=== PATIENT | female | born 1975 | race Caucasian/White ===

== ENCOUNTER 2019-04-03 11:18 | Emergency (ER) | payer BC, OTHER ==
--- NOTE | 2019-04-03 11:57 | UC ---
Ear Complaint HPI - HPI Summary HPI Summary: 44 yo female presents with LEFT ear pain and sore throat. She tells me that about 2 days ago she began to have mild left ear pain that has significantly worsened since that time. She has a muffled sound in her left ear with pain in the ear with swallowing. She has not taken anything OTC for her symptoms. Denies fever, chills, sinus symptoms, cough. - History of Current Complaint Chief Complaint: UCEar Stated Complaint: EAR PAIN Time Seen by Provider: 04/03/19 11:57 Hx Obtained From: Patient Onset/Duration: Gradual Onset Severity Initially: Moderate Severity Currently: Moderate Pain Intensity: 7 Pain Scale Used: 0-10 Numeric - Allergies/Home Medications Allergies/Adverse Reactions: Allergies Allergy/AdvReac Type Severity Reaction Status Date / Time No Known Allergies Allergy Verified 04/03/19 11:43 Home Medications: Home Medications Loratadine 1 tab PO DAILY 04/03/19 [History Confirmed 04/03/19] amLODIPine TAB* [Norvasc 5 mg TAB*] 1 tab PO DAILY 04/03/19 [History Confirmed 04/03/19] PMH/Surg Hx/FS Hx/Imm Hx Cardiovascular History: Hypertension - Surgical History Surgical History: None - Family History Known Family History: Positive: Non-Contributory - Social History Lives: With Family Alcohol Use: None Substance Use Type: None Smoking Status (MU): Heavy Every Day Tobacco Smoker Review of Systems All Other Systems Reviewed And Are Negative: No Constitutional: Positive: Negative Skin: Positive: Negative Eyes: Positive: Negative ENT: Positive: Sore Throat, Ear Ache Respiratory: Positive: Negative Cardiovascular: Positive: Negative Gastrointestinal: Positive: Negative Neurological: Positive: Negative Psychological: Positive: Negative Physical Exam - Summary Physical Exam Summary: GENERAL: NAD. WDWN. No pain distress. SKIN: No rashes, sores, lesions, or open wounds. HEENT: Head: AT/NC Eyes: EOM intact. Conjunctiva clear without inflammation or discharge. Ears: Hearing grossly normal. LEFT TM with mild erythema and bulging. No canal edema or drainage. Nose: Nasal mucosa pink and moist. NTTP maxillary and frontal sinus. Throat: Posterior oropharynx without exudates, erythema, or tonsillar enlargement. Uvula midline. NECK: Supple. Nontender. No lymphadenopathy. CHEST: CTAB. No r/r/w. No accessory muscle use. Breathing comfortably and in no distress. CV: RRR. Without m/r/g. Pulses intact. NEURO: Alert. PSYCH: Age appropriate behavior. Triage Information Reviewed: Yes Vital Signs: Initial Vital Signs Temp 98 F 04/03/19 11:40 Pulse 79 04/03/19 11:40 Resp 18 04/03/19 11:40 BP 149/109 04/03/19 11:40 Pulse Ox 100 04/03/19 11:40 Vital Signs Reviewed: Yes Ear Complaint Course/Dx - Course Course Of Treatment: Otitis media - Differential Dx/Diagnosis Provider Diagnosis: Otitis media Discharge ED - Sign-Out/Discharge Documenting (check all that apply): Patient Departure All imaging exams completed and their final reports reviewed: No Studies - Discharge Plan Condition: Stable Disposition: HOME Prescriptions: Amoxicillin PO (*) [Amoxicillin 875 MG (*)] 875 mg PO BID #14 tab Loratadine [Claritin 10 MG CAP] 10 mg PO DAILY #30 cap Patient Education Materials: Ear Infection (ED) Referrals: No Primary Care Phys,NOPCP [Primary Care Provider] - Additional Instructions: If you develop a fever, shortness of breath, chest pain, new or worsening symptoms - please call your PCP or go to the ED immediately. Your blood pressure was high at todays visit. Please see your primary provider within 4 weeks for recheck and re-evaluation. - Billing Disposition and Condition Condition: STABLE Disposition: Home
[2019-04-03 12:07] VITALS: BP 140/90
== END 2019-04-03 12:23 | disposition home or self-care (01) ==
LOC: UCEAST 11:18
DX: H66.92 Otitis media, unspecified, left ear (principal); I10 Essential (primary) hypertension; Z79.899 Other long term (current) drug therapy; F17.200 Nicotine dependence, unspecified, uncomplicated
CPT/HCPCS: 99202; G0463

== ENCOUNTER 2019-04-04 15:56 | Inpatient (IN) | payer OTHER ==
[2019-04-04] MEDS ORDERED: Ketorolac INJ* 30 MG/ML 1 ML VIAL IM ONE (16:37)
--- NOTE | 2019-04-04 16:39 | ED ---
Throat Pain/Nasal Congestion - HPI Summary HPI Summary: This patient is a 44 year old F presenting to ED with a chief complaint of left ear pain since 04/02/19. Patient recently got a flu shot on 04/02/19 and then developed the ear pain later. Patient states she was seen at on 04/03/19 and diagnosed with an ear infection. She was given amoxicillin and Claritin. Patient did not sleep well last night due to the ear pain. Two hours ago, she developed a sore throat, diaphoresis, body aches, nausea, bilateral upper extremity burning/tingling, and chest burning/tingling. Patient denies SOB, rhinitis, cough, vomiting. The patient rates the pain 9/10 in severity. Symptoms aggravated by nothing. Symptoms alleviated by nothing. - History of Current Complaint Chief Complaint: EDFluSymptoms Time Seen by Provider: 04/04/19 16:22 Hx Obtained From: Patient Onset/Duration: Sudden Onset, Lasting Days - Since 04/02/19, Still Present, Worse Since - Developed new symptoms Severity: Worse Since: - Two hours ago, developed new symptoms Associated Signs And Symptoms: Positive: Negative - SOB, cough, rhinitis Cough: None - Allergies/Home Medications Allergies/Adverse Reactions: Allergies Allergy/AdvReac Type Severity Reaction Status Date / Time No Known Allergies Allergy Verified 04/04/19 16:02 PMH/Surg Hx/FS Hx/Imm Hx Endocrine/Hematology History: Denies: Hx Diabetes Cardiovascular History: Reports: Hx Hypertension Respiratory History: Denies: Hx Asthma, Hx Chronic Obstructive Pulmonary Disease (COPD) - Surgical History Surgery Procedure, Year, and Place: - Immunization History Date of Influenza Vaccine: 04/02/19 Infectious Disease History: No Infectious Disease History: Denies: Traveled Outside the [place] in Last 30 Days - Family History Known Family History: Positive: Cardiac Disease, Hypertension, Diabetes - Social History Alcohol Use: None Hx Substance Use: No Substance Use Type: Reports: None Hx Tobacco Use: Yes Smoking Status (MU): Heavy Every Day Tobacco Smoker Review of Systems Positive: Skin Diaphoresis ENT: Negative - Rhinitis Positive: Sore Throat, Ear Ache - Left Positive: Chest Pain - Burning/tingling Negative: Shortness Of Breath, Cough Positive: Nausea. Negative: Vomiting Musculoskeletal: Other - Body aches, bilateral upper extremity burning/tingling All Other Systems Reviewed And Are Negative: Yes Physical Exam - Summary Physical Exam Summary: Appearance: The patient is well-nourished in no acute distress and in no acute pain. Skin: The skin is warm and dry, and skin color reflects adequate perfusion. HEENT: The head is normocephalic and atraumatic. The pupils are equal and reactive. The conjunctivae are clear and without drainage. Nares are patent and without drainage. Mouth reveals moist mucous membranes, and the throat is without erythema and exudate. The external ears are intact. The ear canals are patent and without drainage. The tympanic membranes are intact. Neck: The neck is supple with full range of motion and non-tender. There are no carotid bruits. There is no neck vein distension. Respiratory: Chest is non-tender. Lungs are clear to auscultation and breath sounds are symmetrical and equal. Cardiovascular: Heart is regular rate and rhythm. There is no murmur or rub auscultated. There is no peripheral edema and pulses are symmetrical and equal. Abdomen: The abdomen is soft and non-tender. There are normal bowel sounds heard in all four quadrants and there is no organomegaly palpated. Musculoskeletal: There is no back tenderness noted. Extremities are non-tender with full range of motion. There is good capillary refill. There is no peripheral edema or calf tenderness elicited. Neurological: Patient is alert and oriented to person, place and time. The patient has symmetrical motor strength in all four extremities. Cranial nerves are grossly intact. Deep tendon reflexes are symmetrical and equal in all four extremities. Psychiatric: The patient has an appropriate affect and does not exhibit any anxiety or depression. Triage Information Reviewed: Yes Vital Signs On Initial Exam: Initial Vitals Temp Pulse Resp BP Pulse Ox 96.7 F 67 16 167/111 100 04/04/19 15:57 04/04/19 15:57 04/04/19 15:57 04/04/19 15:57 04/04/19 15:57 Vital Signs Reviewed: Yes Diagnostics - Vital Signs Vital Signs Temp Pulse Resp BP Pulse Ox 04/04/19 16:15 97.4 F 04/04/19 16:12 64 99 04/04/19 16:07 63 180/124 98 04/04/19 15:57 96.7 F 67 16 167/111 100 - Laboratory Result Diagrams: 04/04/19 16:46 04/04/19 16:46 Lab Statement: Any lab studies that have been ordered have been reviewed, and results considered in the medical decision making process. - Radiology CXR Radiology Interpretation Completed By: ED Physician Summary of Radiographic Findings: No acute processes, pending official radiology report. - EKG 1843 Cardiac Rate: NL - 67 BPM EKG Rhythm: Sinus Rhythm Summary of EKG Findings: NSR at 67 BPM, acute inferior STEMI. Re-Evaluation - Re-Evaluation First Eval Re-Evaluation Time: 18:39 Comment: Discussed results with patient. Patient reports she is now having chest pain and worse pain in the left arm than the right arm so I will check an EKG and troponin. Patient only now reports that her family has cardiac disease. EENT Course/Dx - Course Course Of Treatment: Ms. Hammer presented complaining that she went to [facility] yesterday for left ear pain. She was given a prescription for amoxicillin, filled and began taking it. She didn't sleep well last night because of the pain in her ear. About 2 hours prior to presentation she began to complain of burning all over but especially her bilateral forearms and chest. With nausea, body aches, sore throat and diaphoresis. She was anxious in appearance but nontoxic with stable vitals. Her left ear looked fine to me. She was concerned that this could be a result of the flu vaccine that she just received a couple days ago. A flu swab, strep throat swab and labs were unremarkable aside from a nondiagnostic elevation of her white blood cells at 15 ,000. I was puzzled as to the etiology of her complaints and spoke with her at some length. She had been given ketorolac with significant relief of her symptoms. At that point she was complaining mostly of left forearm pain and chest pain which she still described as burning. The rest of her symptoms had resolved. This was more concerning and an EKG was obtained at that point which showed an acute inferior STEMI. Troponin was added to the initial labs and was 0.06. Dr. Moseley was contacted for the STEMI alert and came immediately to the department to evaluate the patient. In the meantime she was given Brilynta , heparin and aspirin. - Diagnoses Provider Diagnoses: Acute inferior myocardial infarction During the Visit The Following Alert/Code Occurred: STEMI - Provider Notifications Discussed Care Of Patient With: Preet Boyle Time Discussed With Above Provider: 18:51 Instructed by Provider To: Other - Discussed patient case with Dr. Boyle, interventionalist, who recommended heparin and aspirin dosages. - Critical Care Time Critical Care Time: 30-74 min Discharge ED - Sign-Out/Discharge Documenting (check all that apply): Patient Departure Patient Received Moderate/Deep Sedation with Procedure: No - Discharge Plan Condition: Stable Disposition: ADMITTED TO [facility] Referrals: Unique Cabrera MD [Primary Care Provider] - - Billing Disposition and Condition Condition: STABLE Disposition: Admitted to [facility] - Attestation Statements Document Initiated by Edithe: Yes Documenting Scribe: Kyle Navarro Provider For Whom Rocael is Documenting (Include Credential): Bulmaro Villa MD Scribe Attestation: IKyle, scribed for Bulmaro Villa MD on 04/04/19 at 1916. Scribe Documentation Reviewed: Yes Provider Attestation: The documentation as recorded by the Kyle ayala accurately reflects the service I personally performed and the decisions made by me, Bulmaro Villa MD Status of Scribe Document: Viewed
[2019-04-04 16:52] LABS: ABS Basophils 0.1 10^3/ul (0-0.2); ABS Eosinophils 0.1 10^3/ul (0-0.6); ABS Lymphocytes 1.4 10^3/ul (1.0-4.8); ABS Monocytes 0.6 10^3/ul (0-0.8); Eosinophil % 0.4 %; Hematocrit 49 % (35-47); Hemoglobin 16.5 g/dL (12.0-16.0); Lymphocyte % 9.5 %; Mean Corpuscular HGB Conc 34 g/dL (31-36); Mean Corpuscular Hemoglobin 30 pg (27-31); Mean Corpuscular Volume 89 fL (80-97); Mean Platelet Volume 8.1 fL (7.4-10.4); Nucleated Red Blood Cells % 0.1; Platelet Count 185 10^3/uL (150-450); Red Blood Count 5.49 10^6 /uL (3.70-4.87); Red Cell Distribution Width 14 % (10-15); White Blood Count 15.1 10^3/uL (3.5-10.8)
[2019-04-04 17:10] LABS: ALT 12 U/L (7-52); AST 13 U/L (13-39); Albumin 4.6 g/dL (3.2-5.2); Albumin/Globulin Ratio 1.7 (1-3); Alkaline Phosphatase 62 U/L (34-104); Anion Gap 5 mmol/L (2-11); BUN/Creatinine Ratio 13.3 (8-20); Blood Urea Nitrogen 10 mg/dL (6-24); C Reactive Protein 2.65 mg/L (<8.01); CO2 Carbon Dioxide 28 mmol/L (22-32); Calcium 9.8 mg/dL (8.6-10.3); Chloride 106 mmol/L (101-111); EGFR African American 101.6 (>60); EGFR Non-African American 83.9 (>60); Globulin 2.7 g/dL (2-4); Glucose 167 mg/dL (70-100); Potassium 3.4 mmol/L (3.5-5.0); Sodium 139 mmol/L (135-145); Total Protein 7.3 g/dL (6.4-8.9)
[2019-04-04 17:34] LABS: Rapid Strep Molecular Negative (Negative)
[2019-04-04 17:40] LABS: Influenza A Molecular NEGATIVE (Negative); Influenza B Molecular NEGATIVE (Negative)
[2019-04-04] MEDS ORDERED: Aspirin TAB* 325 MG PO ONE (18:52)
[2019-04-04] MEDS ORDERED: Heparin for STEMI(*) 5,000 UNITS/ML 1 ML VIAL IV ONE (18:53)
[2019-04-04] MEDS ORDERED: Ticagrelor* 90 MG TAB PO ONE ×2 (18:53→19:00)
[2019-04-04] MEDS ORDERED: Aspirin 81 mg CHEW TAB* 81 MG TAB.CHEW ONE (19:00)
[2019-04-04] MEDS ORDERED: Nitroglycerin TAB 0.4 MG* 0.4 MG TAB ONE (19:00)
[2019-04-04] MEDS ORDERED: Heparin VIAL(*) 5000 UNITS/ML VIAL (FIVE THOUSAND) ONE (19:00)
[2019-04-04 19:02] LABS: Troponin I 0.06 ng/mL (<0.04)
[2019-04-04] MEDS ORDERED: fentaNYL* 50 MCG/ML 2 ML VIAL (100 MCG VIAL) ONE (19:09)
[2019-04-04] MEDS ORDERED: Midazolam* 1 MG/ML 5 ML VIAL (5 MG) ONE (19:09)
[2019-04-04] MEDS ORDERED: Iohexol 350 (CONTRAST) 200 ML MDV IV ONE ×2 (19:10→20:01)
[2019-04-04] MEDS ORDERED: Heparin(*) 1000 UNIT/ML 10 ML VIAL CATH LAB IV ONE (19:10)
[2019-04-04] MEDS ORDERED: VERAPAMIL 2.5 MG/ML 2 ML VIAL ** 5 mg/2 ml ONE ×2 (19:10→19:35)
[2019-04-04] MEDS ORDERED: nitroGLYCERIN DRIP* 25,000 MCG/250 ML BTL ONE (19:10)
[2019-04-04] MEDS ORDERED: Heparin 2 UNITS/ML IVPREMIX* 3,000 ML IV ONE (19:10)
[2019-04-04] MEDS ORDERED: Lidocaine 1% INJ* 10 MG/ML 30 ML SDV ONE (19:10)
[2019-04-04 19:36] LABS: INR 1.22 (0.82-1.09)
[2019-04-04 19:43] LABS: CKMB ng/mL 22.1 ng/mL (0.6-6.3)
[2019-04-04 19:51] LABS: Activated Partial Thrombo Time < 240.0 seconds (26.0-38.0)
[2019-04-04] MEDS ORDERED: IVPREM CENTR ONE (20:08)
[2019-04-04] MEDS ORDERED: DOPAMINE 800 MG/250 ML CENTR ONE (20:08)
[2019-04-04] MEDS ORDERED: Metoprolol Tartrate IV* 1 MG/ML 5 ML VIAL ONE (20:29)
[2019-04-04] MEDS ORDERED: Atropine SYRINGE* 0.1 MG/ML 10 ML SYRINGE (1 MG) ONE (20:52)
[2019-04-04] MEDS ORDERED: Ondansetron INJ* 2 MG/ML VIAL IV PRN (20:57)
[2019-04-04] MEDS ORDERED: Docusate CAP* 100 MG PO PRN (20:57)
[2019-04-04] MEDS ORDERED: Acetaminophen TAB* 325 MG PO PRN (20:57)
[2019-04-04] MEDS ORDERED: Zolpidem TAB* 5 MG PO PRN (20:57)
[2019-04-04] MEDS ORDERED: Nitroglycerin TAB 0.4 MG* 0.4 MG TAB SL PRN (20:57)
[2019-04-04] MEDS ORDERED: Metoprolol Tartrate TAB* 25 MG PO SCH (21:00)
[2019-04-04] MEDS ORDERED: Atorvastatin* 80 MG TAB PO ONE (21:06)
--- OUTSIDE RECORDS SUMMARY | 2019-04-04 21:17 | XMS REPORT | Summary of Care ---
:1975 Author Organization [facility] Address [address] [place] [address] Care Team Providers Name Role Phone Unique Cabrera MD Primary Care Provider Reason for Visit Reason Comments Hypertension Encounter Details Date Type Department Care Team Description 02/18/2019 Office Visit [facility] Rick, Essential hypertension ( Primary Dx); Practice Unique Daniel MD Tobacco dependence; [address] [facility] [facility] Sensation of lump in throat; [place] [address] Screening mammogram, encounter for [phone] Allergies Active Allergy Reactions Severity Noted Date Comments Varenicline Swelling 02/18/2019 Throat swelling Lisinopril Hives Medium 05/13/2018 documented as of this encounter (statuses as of 02/18/2019) Medications Medication Sig Dispensed Refills Start Date End Date Status ranitidine Take 1 Tab by 60 Tab 1 02/18/2019 Active (ZANTAC) 150 MG mouth TWICE Oral DAILY. TabIndications: Sensation of lump in throat loratadine Take 1 Tab by 30 Tab 1 02/18/2019 Active (CLARITIN,ALAVERT) mouth DAILY. 10 MG Oral TabIndications: Sensation of lump in throat amLodipine Take 1 Tab by 30 Tab 5 02/18/2019 Active (NORVASC) 5 MG mouth DAILY. Oral TabIndications: Essential hypertension Varenicline Take 1 1 Kit 0 01/19/2019 Discontinued Tartrate 0.5 MG X Package by 9 (Adverse Drug 11 & 1 MG X 42 mouth Reaction) Oral Misc DIRECTED. amLodipine Take 1 Tab by 30 Tab 0 02/11/2019 Discontinued (NORVASC) 5 MG mouth DAILY. 9 (Reorder) Oral Tab documented as of this encounter (statuses as of 02/18/2019) Active Problems No known active problemsdocumented as of this encounter (statuses as of 2018) Immunizations Name Administration Dates Next Due TDAP Vaccine 01/19/2019 documented as of this encounter Social History Tobacco Use Types Packs/Day Years Used Date Current Every Day Smoker Cigarettes 1 17 Smokeless Tobacco: Never Used Alcohol Use Drinks/Week oz/Week Comments No 0 Standard drinks or equivalent 0.0 Sex Assigned at Date Recorded Not on file Job Start Date Occupation Industry Not on file Not on file Not on file Travel History Travel Start Travel End No recent travel history available. documented as of this encounter Last Filed Vital Signs Vital Sign Reading Time Taken Comments Blood Pressure 132/92 02/18/2019 11:52 AM EDT Pulse 74 02/18/2019 11:52 AM EDT Temperature - - Respiratory Rate - - Oxygen Saturation 98% 02/18/2019 11:52 AM EDT Inhaled Oxygen Concentration - - Weight 76.7 kg (169 lb) 02/18/2019 11:52 AM EDT Height 165.1 cm (5' 5") 02/18/2019 11:52 AM EDT Body Mass Index 28.12 02/18/2019 11:52 AM EDT documented in this encounter Patient Instructions Patient InstructionsUnique Cabrera MD - 02/18/2019 11:40 AM EDTStay off chantix, I fear you are allergic given the swelliing sensation you had in your throat. Your blood pressure is improving. Please check it at home weekly.\\ Goal is under 139/89 and 120/70's are best. If over 140/90, let me know and I will adjust your amlodipine. Try 2-3 weeks of loratadine and ranitidine for the feeling in our throat. If it does not go away, then I will refer you to ENT. Don't give up, keep trying to stop smoking. Follow a low fat diet. Heart Healthy Diet BANKING AND FINANCE INSTRUCTOR: A heart healthy diet is an eating plan low in total fat, unhealthy fats, and sodium (salt). A hearthealthy diet helps decrease your risk for heart disease and stroke. Limit the amount of fat you eat to 25% to 35% of your total daily calories. Limit sodium to less than 2,300 mg each day. Healthy fats: Healthy fats can help improve cholesterol levels. The risk for heart disease is decreased when cholesterol levels are normal. Choose healthy fats, such as the following: Unsaturated fat is found in foods such as soybean, canola, olive, and sunflower oils. It is also found in soft tub margarine that is made with liquid vegetable oil. [place]-3 fat is found in certain fish, such as salmon, tuna, and trout, and in walnuts and flaxseed. Unhealthy fats: Unhealthy fats can cause unhealthy cholesterol levels in your blood and increase your risk of heart disease. Limit unhealthy fats, such as the following: Cholesterol is found in animal foods, such as eggs and lobster, and in dairy products made from whole milk. Limit cholesterol to less than 300 milligrams (mg) each day. You may need to limit cholesterol to 200 mg each day if you have heart disease. Saturated fat is found in fatty meats, such as rubin and hamburger. It is also found in chicken or turkey skin, whole milk, and butter. Limit saturated fat to less than 7% of your total daily calories. Trans fat is found in packaged foods, such as potato chips and cookies. It is also in hard margarine, some fried foods, and shortening. Avoid trans fats as much as possible. Heart healthy foods and drinks to include: Ask your dietitian or healthcare provider how many servings to have from each of the following food groups: Whole-grain breads, cereals, and pastas, brown rice, and low-fat, low- sodium crackers and chips Fruits, vegetables, and juices with no added salt or are canned in light syrup or fruit juice Low-fat dairy products , such as nonfat (skim) or 1% milk, cheese, yogurt, and cottage cheese Meats and proteins , such as lean beef, skinless chicken, legumes, soy products, egg whites, and nuts Foods and drinks to limit or avoid: Ask your dietitian or healthcare provider about these and otherfoods that are high in unhealthy fat and sodium: Snack or packaged foods , such as frozen dinners, cookies, macaroni and cheese, and cereals with more than 300 mg of sodium per serving Canned or dry mixes for cakes, soups, sauces, or gravies Vegetables that are powdered, such as instant potatoes, are packaged with sauces, or are canned (unless they are low sodium) Whole or 2% milk, cream cheese, or sour cream, and cheeses with more than 140 mg of sodium per serving High-fat cuts of beef (T-bone steaks, ribs), egg yolks, chicken or turkey with skin, and organmeats, such as liver Cured or smoked meats , such as hot dogs and sausage Fats and oils , such as butter, stick margarine, shortening, and cooking oils such as coconut or palm oil Other foods high in sodium , such as ketchup, barbecue sauce, salad dressing, pickles, olives, soy sauce, and miso Other diet guidelines to follow: Eat more foods containing omega-3 fats. Eat fish high in omega-3 fats at least 2 times a week. Limit alcohol. Too much alcohol can damage your heart and raise your blood pressure. A drink of alcohol is 12 ounces of beer, 5 ounces of wine, or 1 ounces of liquor. Choose low-sodium foods. High-sodium foods can lead to high blood pressure. Add little or no salt to food you prepare. Use herbs and spices in place of salt. Eat more fiber to help lower cholesterol levels. Eat at least 5 servings of fruits and vegetables each day. Eat 3 ounces of whole-grain foods each day. Legumes (beans) are also a good source of fiber. Replace sweetened foods and drinks with those that have no or low sugar added. Ask your dietitian or healthcare provider which foods and liquids are best for you. Lifestyle guidelines: Do not smoke. Nicotine and other chemicals in cigarettes and cigars can cause lung and heart damage. Ask your healthcare provider for information if you currently smoke and need help to quit. E-cigarettes or smokeless tobacco still contain nicotine. Talk to your healthcare provider before you use these products. Exercise regularly to help you maintain a healthy weight and improve your blood pressure and cholesterol levels. Ask your healthcare provider about the best exercise plan for you. Do not start anexercise program without asking your healthcare provider. Follow up with your healthcare provider as directed: Write down your questions so you remember to ask them during your visits. 2016 [employer]. Information is for End User's use only and may not be sold, redistributed or otherwise used for commercial purposes. All illustrations and images included in CareNotes are the copyrighted property of [employer]. or [employer]. The above information is an case work aide only. It is not intended as medical advice for individual conditions or treatments. Talk to your doctor, nurse or pharmacist before following any medical regimen to see if it is safe and effective for you. 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 female who presents for followup hypertension She had allergic reaction to lisinorpil last year, hives. History of Present Illness/ROS: Patient presents with hypertension. Plan last visit: Resume amlodipine Risks and benefits of chantix reviewed. Stop and call for help if depressed or suicidal on this. 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 Wants to try chantix She reports today she is back on amlodipine and doing well with that. She stopped chantix on day 15 due to the feeling of throat swelling and has been off since. She still has the sensation but it is better than it was. [place] like Something was in her throat. Smoking 1/2 ppd again She indicates that she is feeling well and denies any symptoms referable to her elevated blood pressure. Specifically denies chest pain, orthopnea, peripheral edema. Current medication regimen is as listed below. Patient has these side effects of medication: no. Cardiovascular risk factors: smoking/tobacco exposure, hypertension Use of agents associated with hypertension: none History of renal disease: negative History of flank trauma: negative Review of Systems - H General ROS: negative for - chills or fever, unexpected weight changes ENT ROS: negative for - headaches, nasal congestion, nasal discharge,but has discomfort left side ofher throat, like a hair is stuck there, has intermittent hoarseness. Respiratory ROS: negative for - cough, hemoptysis or shortness of breath Cardiovascular ROS: negative for - chest pain, dyspnea on exertion, edema or palpitations Gastrointestinal ROS: no abdominal pain, change in bowel habits Neuro: denies headache, focal weakness, numbness Health Maintenence reviewed. She agree to a mammogram Office Visit on 01/19/2019 Component Date Value Ref Range Status WBC Count 01/19/2019 8.02 3.98 - 10.04 K/uL Final RBC Count 01/19/2019 5.10 3.93 - 5.22 M/UL Final Hemoglobin 01/19/2019 15.1 11.2 - 15.7 G/DL Final Hematocrit 01/19/2019 46.7* 34.1 - 44.9 % Final MCV 01/19/2019 91.6 79.4 - 94.8 FL Final MCH 01/19/2019 29.6 25.6 - 32.2 PG Final MCHC 01/19/2019 32.3 32.2 - 35.5 g/dL Final Platelet Count 01/19/2019 194 182 - 369 K/uL Final MPV 01/19/2019 10.4 9.4 - 12.3 FL Final RDW 01/19/2019 13.1 11.7 - 14.4 % Final Neutrophil % 01/19/2019 68.5 34.0 - 71.1 % Final Lymphocyte % 01/19/2019 22.6 19.3 - 51.7 % Final Monocyte % 01/19/2019 6.7 4.7 - 12.5 % Final Eosinophil % 01/19/2019 1.6 0.7 - 5.8 % Final Basophil % 01/19/2019 0.5 0.1 - 1.2 % Final nRBC % 01/19/2019 0.0 0.0 - 0.2 % Final Neutrophil # 01/19/2019 5.49 1.56 - 6.13 K/UL Final Lymphocyte # 01/19/2019 1.81 1.18 - 3.74 K/UL Final Monocyte # 01/19/2019 0.54 0.24 - 0.86 K/UL Final Eosinophil # 01/19/2019 0.13 0.04 - 0.36 K/UL Final Basophil # 01/19/2019 0.04 0.01 - 0.08 K/UL Final Immature Gran % 01/19/2019 0.1 0.0 - 0.4 % Final Immature Gran # 01/19/2019 0.01 0.00 - 0.03 K/uL Final NRBC # 01/19/2019 0.00 0.00 - 0.12 K/uL Final Free T4 01/19/2019 0.9 0.8 - 2.2 NG/DL Final TSH 01/19/2019 4.22 0.47 - 4.68 uIu/ml Final Cholesterol 01/19/2019 195 <200 mg/dl Final HDL Cholesterol 01/19/2019 49* >50 mg/dl Final Triglycerides 01/19/2019 83 <150 mg/dl Final LDL Cholesterol 01/19/2019 129* <100 MG/DL Final Cholesterol / HDL Ratio 01/19/2019 4.0 RATIO Final LDL / HDL Ratio 01/19/2019 2.6 Final Non-HDL Cholesterol 01/19/2019 146* 0 - 130 MG/DL Final Magnesium 01/19/2019 2.2 1.6 - 2.3 MG/DL Final Sodium 01/19/2019 141 134 - 145 mmol/L Final Potassium 01/19/2019 4.6 3.5 - 5.1 mmol/L Final Chloride 01/19/2019 105 98 - 107 mmol/L Final CO2 01/19/2019 30 22 - 30 mmol/L Final Calcium 01/19/2019 9.8 8.3 - 10.1 mg/dl Final Albumin 01/19/2019 4.3 3.5 - 5.0 g/dl Final BUN 01/19/2019 10 7 - 17 mg/dl Final Creatinine 01/19/2019 0.7 0.7 - 1.2 mg/dl Final Glucose 01/19/2019 84 70 - 99 mg/dl Final Total Protein 01/19/2019 7.3 6.3 - 8.2 g/dl Final Total Bilirubin 01/19/2019 0.5 0.0 - 1.1 MG/DL Final AST 01/19/2019 24 15 - 46 U/L Final ALT 01/19/2019 24 9 - 52 U/L Final Alkaline Phosphatase 01/19/2019 65 40 - 150 U/L Final eGFR 01/19/2019 >60 See Interpretation Below ml/min/1.73ml Sq Final Estimated GFR Interpretation: Above 60ml/min/1.73m2 = Normal Renal Function 30-59 ml/min/1.73m2 = Stage 3 Chronic Kidney Disease 15-29 ml/min/1.73m2 = Stage 4 Chronic Kidney Disease Less than 15 ml/min/1.73m2 = Stage 5 Chronic Kidney Disease The GFR value is calculated using the Modification of Diet in Renal Disease ( MDRD) Study Equation which can be found at: https://www.kidney.org/content/izrt-tgets-nmcvnhfj BUN/Creatinine Ratio 01/19/2019 14 6 - 22 RATIO Final Anion Gap 01/19/2019 6 3 - 11 mmol/L Final A/G Ratio 01/19/2019 1.4 0.8 - 2.0 ratio Final Past Medical History: Diagnosis Date Essential (primary) hypertension GERD (gastroesophageal reflux disease) improved Past Surgical History: Procedure Laterality Date CT REMV PILONIDAL LESION EXTENS CT TOTAL ABDOM HYSTERECTOMY Current Outpatient Medications: amLodipine (NORVASC) 5 MG Oral Tab, Take 1 Tab by mouth DAILY., Disp: 30 Tab, Rfl: 5 loratadine (CLARITIN,ALAVERT) 10 MG Oral Tab, Take 1 Tab by mouth DAILY. , Disp: 30 Tab, Rfl:1 ranitidine (ZANTAC) 150 MG Oral Tab, Take 1 Tab by mouth TWICE DAILY., Disp: 60 Tab, Rfl: 1 Allergies Allergen Reactions Lisinopril Hives Chantix [Varenicline] Swelling Throat swelling Social History Socioeconomic History Marital status: Single Spouse name: Not on file Number of children: Not on file Years of education: Not on file Highest education level: Not on file Occupational History Not on file Social Needs Financial resource strain: Not on file Food insecurity: Worry: Not on file Inability: Not on file Transportation needs: Medical: Not on file Non-medical: Not on file Tobacco Use Smoking status: Current Every Day Smoker Packs/day: 1.00 Years: 17.00 Pack years: 17.00 Types: Cigarettes Smokeless tobacco: Never Used Substance and Sexual Activity Alcohol use: No Alcohol/week: 0.0 standard drinks Drug use: No Sexual activity: Yes Partners: Male control/protection: Surgical Lifestyle Physical activity: Days per week: Not on file Minutes per session: Not on file Stress: Not on file Relationships Social connections: Talks on phone: Not on file Gets together: Not on file Attends rastafarian service: Not on file Active member of club or organization: Not on file Attends meetings of clubs or organizations: Not on file Relationship status: Not on file Intimate partner violence: Fear of current or ex partner: Not on file Emotionally abused: Not on file Physically abused: Not on file Forced sexual activity: Not on file Other Topics Concern Back Care Not Asked Bike Helmet Not Asked Blood Transfusions Not Asked Caffeine Concern Not Asked Exercise Not Asked Hobby Hazards Not Asked International Travel Not Asked Service Not Asked Occupational Exposure Not Asked Seat Belt Not Asked Self-Exams Not Asked Sleep Concern Not Asked Special Diet Not Asked Stress Concern Not Asked Weight Concern Not Asked Social History Narrative Not on file Family History Problem Relation Age of Onset Hypertension Mother No Known Problems Daughter Diabetes Maternal Uncle Cancer Maternal Uncle lung cancer Diabetes Maternal Aunt Heart Maternal Aunt Diabetes Maternal Grandfather Heart Maternal Grandmother PHYSICAL EXAMINATION: BP (!) 132/92 (BP Location: Right arm, Patient Position: Sitting) | Pulse 74 | Ht 5' 5" (1.651 m)| Wt 169 lb (76.7 kg) | SpO2 98% | ? No | BMI 28.12 kg/m Physical Examination: General appearance - alert, well appearing, and in no distress Mental status - alert, oriented to person, place, and time, normal mood, behavior, speech, dress, motor activity, and thought processes Eyes - pupils equal and reactive, extraocular eye movements intact, sclera anicteric Ears - bilateral TM's and external ear canals normal Neck - supple, no cervical or supraclavicular adenopathy, carotids upstroke normal bilaterally, no bruits, thyroid exam: thyroid is normal in size without nodules or tenderness, no neck masses palpated. Chest/Lungs - clear to auscultation, no wheezes, rales or rhonchi, symmetric air entry, good aeration Heart - normal rate, regular rhythm, normal S1, S2, no murmurs, rubs, clicks or gallops Abdomen - soft, non tender on palpation, nondistended, no masses or hepatosplenomegaly, bowel soundsnormal, normal to percussion, no guarding or rebound. No costervertebral angle tenderness Neurological - alert, oriented, normal speech, no gross focal findings or movement disorder noted Extremities - dorsalis pedis pulses normal, no pedal edema, no clubbing or cyanosis ASSESSMENT/PLAN: ICD-9-CM ICD-10-CM 1. Essential hypertension 401.9 I10 amLodipine (NORVASC) 5 MG Oral Tab 2. Tobacco dependence 305.1 F17.200 3. Sensation of lump in throat 784.99 R22.1 ranitidine (ZANTAC) 150 MG Oral Tab loratadine (CLARITIN,ALAVERT) 10 MG Oral Tab 4. Screening mammogram, encounter for V76.12 Z12.31 MAMMO DIGITAL SCREEN BILATERAL Patient Instructions Stay off chantix, I fear you are allergic given the swelliing sensation you had in your throat. Your blood pressure is improving. Please check it at home weekly.\\ Goal is under 139/89 and 120/70's are best. If over 140/90, let me know and I will adjust your amlodipine. Try 2-3 weeks of loratadine and ranitidine for the feeling in our throat. If it does not go away, then I will refer you to ENT. Don't give up, keep trying to stop smoking. Follow a low fat diet. Heart Healthy Diet BANKING AND FINANCE INSTRUCTOR: A heart healthy diet is an eating plan low in total fat, unhealthy fats, and sodium (salt). A hearthealthy diet helps decrease your risk for heart disease and stroke. Limit the amount of fat you eat to 25% to 35% of your total daily calories. Limit sodium to less than 2,300 mg each day. Healthy fats: Healthy fats can help improve cholesterol levels. The risk for heart disease is decreased when cholesterol levels are normal. Choose healthy fats, such as the following: Unsaturated fat is found in foods such as soybean, canola, olive, and sunflower oils. It is also found in soft tub margarine that is made with liquid vegetable oil. [place]-3 fat is found in certain fish, such as salmon, tuna, and trout, and in walnuts and flaxseed. Unhealthy fats: Unhealthy fats can cause unhealthy cholesterol levels in your blood and increase your risk of heart disease. Limit unhealthy fats, such as the following: Cholesterol is found in animal foods, such as eggs and lobster, and in dairy products made from whole milk. Limit cholesterol to less than 300 milligrams (mg) each day. You may need to limit cholesterol to 200 mg each day if you have heart disease. Saturated fat is found in fatty meats, such as rubin and hamburger. It is also found in chicken or turkey skin, whole milk, and butter. Limit saturated fat to less than 7% of your total daily calories. Trans fat is found in packaged foods, such as potato chips and cookies. It is also in hard margarine, some fried foods, and shortening. Avoid trans fats as much as possible. Heart healthy foods and drinks to include: Ask your dietitian or healthcare provider how many servings to have from each of the following food groups: Whole-grain breads, cereals, and pastas, brown rice, and low-fat, low- sodium crackers and chips Fruits, vegetables, and juices with no added salt or are canned in light syrup or fruit juice Low-fat dairy products , such as nonfat (skim) or 1% milk, cheese, yogurt, and cottage cheese Meats and proteins , such as lean beef, skinless chicken, legumes, soy products, egg whites, and nuts Foods and drinks to limit or avoid: Ask your dietitian or healthcare provider about these and otherfoods that are high in unhealthy fat and sodium: Snack or packaged foods , such as frozen dinners, cookies, macaroni and cheese, and cereals with more than 300 mg of sodium per serving Canned or dry mixes for cakes, soups, sauces, or gravies Vegetables that are powdered, such as instant potatoes, are packaged with sauces, or are canned (unless they are low sodium) Whole or 2% milk, cream cheese, or sour cream, and cheeses with more than 140 mg of sodium per serving High-fat cuts of beef (T-bone steaks, ribs), egg yolks, chicken or turkey with skin, and organmeats, such as liver Cured or smoked meats , such as hot dogs and sausage Fats and oils , such as butter, stick margarine, shortening, and cooking oils such as coconut or palm oil Other foods high in sodium , such as ketchup, barbecue sauce, salad dressing, pickles, olives, soy sauce, and miso Other diet guidelines to follow: Eat more foods containing omega-3 fats. Eat fish high in omega-3 fats at least 2 times a week. Limit alcohol. Too much alcohol can damage your heart and raise your blood pressure. A drink of alcohol is 12 ounces of beer, 5 ounces of wine, or 1 ounces of liquor. Choose low-sodium foods. High-sodium foods can lead to high blood pressure. Add little or no salt to food you prepare. Use herbs and spices in place of salt. Eat more fiber to help lower cholesterol levels. Eat at least 5 servings of fruits and vegetables each day. Eat 3 ounces of whole-grain foods each day. Legumes (beans) are also a good source of fiber. Replace sweetened foods and drinks with those that have no or low sugar added. Ask your dietitian or healthcare provider which foods and liquids are best for you. Lifestyle guidelines: Do not smoke. Nicotine and other chemicals in cigarettes and cigars can cause lung and heart damage. Ask your healthcare provider for information if you currently smoke and need help to quit. E-cigarettes or smokeless tobacco still contain nicotine. Talk to your healthcare provider before you use these products. Exercise regularly to help you maintain a healthy weight and improve your blood pressure and cholesterol levels. Ask your healthcare provider about the best exercise plan for you. Do not start anexercise program without asking your healthcare provider. Follow up with your healthcare provider as directed: Write down your questions so you remember to ask them during your visits. 2016 [employer]. Information is for End User's use only and may not be sold, redistributed or otherwise used for commercial purposes. All illustrations and images included in CareNotes are the copyrighted property of [employer] or [employer]. The above information is an case work aide only. It is not intended as medical advice for individual conditions or treatments. Talk to your doctor, nurse or pharmacist before following any medical regimen to see if it is safe and effective for you. Author: Unique Cabrera MD 02/18/2019 13:03 documented in this encounter Plan of Treatment Date Type Specialty Care Team Description 02/26/2019 Ancillary Procedure Radiology 04/01/2019 Office Visit Family [facility] Unique Cabrera MD [address] [place] [address] [phone] Name Type Priority Associated Diagnoses Order Schedule MAMMO DIGITAL SCREEN Imaging Routine Screening mammogram, Expected: 2018, BILATERAL encounter for Expires: 05/18/2020 Health Maintenance Due Date Last Done Comments PNEUMOCOCCAL 0-64 YRS (1 of 1 1981 - PPSV23) MAMMOGRAM (SCREENING) 2015 INFLUENZA VACCINE (#1) 2019 DEPRESSION SCREENING 01/20/2020 01/19/2019 DIABETES SCREENING 01/20/2020 01/19/2019, 04/16/2018 LIPID DISORDER SCREENING 01/20/2020 01/19/2019, 09/16/2010 HPV IMMUNIZATION SERIES Aged Out No longer eligible based on patient's age to complete this topic MENINGOCOCCAL VACCINE IMM Aged Out No longer eligible based on patient's age to complete this topic documented as of this encounter Goals Goal Patient Goal Associated Recent Patient-Stated? Author Type Problems Progress Blood Pressure Blood 132/92 No Rick, < 140/90 Pressure (02/18/2019 Unique Daniel, 11:52 AM EDT) Note: This is an individualized treatment (blood pressure) goal for Afsaneh Hammer: Displayed above (on the left) is your goal for blood pressure control. Your most recent blood pressure is also shown above, on the right. You should try to achieve blood pressures that are lower than your goal listed above (on the left). Take all prescribed medications as Self-management No Unique Cabrera MD directed Note: This is an individualized self-management goal for Afsaneh Hammer: Please take all prescribed medications as directed. 1. Do not skip doses. If you cannot afford your medications, talk with your doctor. 2. Use a pill reminder system such as a pill box if needed. Your pharmacist can help you with this. 3. Contact your Pharmacy 5 days before your medication runs out. If you cannot take your medications for any reasons, talk with your doctor. 4. Please bring all of your medication bottles and inhalers (or a list of all your medications/inhalers) with you to every visit. Potential barriers to meeting all of your care plan goals will continue to be addressed on an ongoing basis. documented as of this encounter Results Not on filedocumented in this encounter Visit Diagnoses Diagnosis Essential hypertension - Primary Unspecified essential hypertension Tobacco dependence Tobacco use disorder Sensation of lump in throat Swelling, mass, or lump in head and neck Screening mammogram, encounter for documented in this encounter Insurance Payer Benefit Plan / Subscriber ID Effective Dates Phone Address Type Group [employer]CIAL C[employer]NA MVP xxxxxxxxxxx 2017-Present Cigna Guarantor Name Account Type Relation to Date of Phone Billing Address Patient Afsaneh Hammer Personal/Family 1975 [address] (Home) [place], [place] [phone] (Work) documented as of this encounter
[2019-04-04] MEDS: NS 0.9% 1000 ML** 1,000 ML IV SCH (21:53)
[2019-04-04 23:30] LABS: Creatine Kinase 1711 U/L (10-223)
[2019-04-04 23:36] LABS: Troponin I 39.54 ng/mL (<0.04)
[2019-04-04 23:45] LABS: CKMB ng/mL > 300.0 ng/mL (0.6-6.3)
[2019-04-04] MEDS ORDERED: Metoprolol Tartrate TAB* 25 MG PO ONE (23:45)
[2019-04-05] MEDS: NS 0.9% 1000 ML** 1,000 ML IV SCH (01:11)
[2019-04-05 03:45] LABS: Magnesium 1.9 mg/dL (1.9-2.7)
[2019-04-05] MEDS: KCL 20 MEQ/100 ML IVPREMIX* 20 MEQ/100 ML BAG IV SCH ×2 (03:46→05:59)
[2019-04-05 05:58] LABS: ABS Eosinophils 0.1 10^3/ul (0-0.6); ABS Lymphocytes 2.1 10^3/ul (1.0-4.8); ABS Monocytes 1.1 10^3/ul (0-0.8); ABS Neutrophils 10.9 10^3/ul (1.5-7.7); Eosinophil % 0.8 %; Hematocrit 43 % (35-47); Hemoglobin 14.4 g/dL (12.0-16.0); Lymphocyte % 14.6 %; Mean Corpuscular HGB Conc 33 g/dL (31-36); Mean Corpuscular Hemoglobin 29 pg (27-31); Mean Corpuscular Volume 88 fL (80-97); Mean Platelet Volume 8.4 fL (7.4-10.4); Platelet Count 201 10^3/uL (150-450); Red Blood Count 4.89 10^6 /uL (3.70-4.87); Red Cell Distribution Width 14 % (10-15); White Blood Count 14.1 10^3/uL (3.5-10.8)
[2019-04-05] MEDS: Ticagrelor* 90 MG TAB PO SCH ×2 (05:59→19:57)
[2019-04-05] MEDS ORDERED: Magnesium Sulfate 1 GM IV* 1 GM/100 ML BAG IV ONE (06:00)
[2019-04-05 06:09] LABS: ALT 33 U/L (7-52); AST 204 U/L (13-39); Albumin 3.9 g/dL (3.2-5.2); Albumin/Globulin Ratio 1.9 (1-3); Alkaline Phosphatase 55 U/L (34-104); Anion Gap 4 mmol/L (2-11); BUN/Creatinine Ratio 10.4 (8-20); Blood Urea Nitrogen 7 mg/dL (6-24); CO2 Carbon Dioxide 24 mmol/L (22-32); Calcium 9.1 mg/dL (8.6-10.3); Chloride 109 mmol/L (101-111); Cholesterol 177 mg/dL; EGFR African American 115.7 (>60); EGFR Non-African American 95.6 (>60); Globulin 2.1 g/dL (2-4); Glucose 109 mg/dL (70-100); HDL Cholesterol 41.3 mg/dL; LDL Cholesterol 108 mg/dL; Potassium 4.2 mmol/L (3.5-5.0); Sodium 137 mmol/L (135-145); Triglycerides 141 mg/dL
[2019-04-05 07:42] LABS: Troponin I > 83.00 ng/mL (<0.04)
[2019-04-05 07:43] LABS: CKMB ng/mL > 300.0 ng/mL (0.6-6.3)
[2019-04-05 07:57] LABS: Creatine Kinase 2360 U/L (10-223)
[2019-04-05] MEDS: Aspirin 81 mg CHEW TAB* 81 MG TAB.CHEW PO SCH (08:54)
[2019-04-05] MEDS: Metoprolol Succinate XL TAB* 25 MG PO SCH ×2 (08:54→19:57)
--- NOTE | 2019-04-05 10:02 | ECHO ---
*[facility]* [place] [address] Fax #: [phone] Transthoracic Echocardiogram Patient: Afsaneh Hammer : 1975 Study Date: 04/05/2019 Age: 44 Gender: F HR: 74 bpm Height: 65 in /165.1 cm BSA: 1.82 m^2 Weight: 164.7 lb /74.8 kg BMI: 27.5 kg/m^2 *Skin Diving Teacher: * Radha Galarza RDCS RN *Referring Physician: * Preet Boyle MD *Reading Physician: * Yoel Perez MD Indications: Myocardial Infarction (new). History: S/P PCI for inferior wall STEMI on 04/04/2019. Risk factors: Current tobacco use. Hypertension. Conclusions Summary: - Left ventricle: The cavity size is mildly reduced. Wall thickness is normal. Systolic function is mildly to moderately reduced. The estimated ejection fraction is 40-45%. Severe hypokinesis of the basal-midinferoseptal myocardium. Akinesis of the basalinferior myocardium. Severe hypokinesis of the midinferior myocardium. - Right ventricle: Systolic function is mildly reduced. - Mitral valve: There is trace regurgitation. - Tricuspid valve: There is mild regurgitation. - No previous echocardiogram available. Study data: Transthoracic echocardiogram. Procedure: Transthoracic echocardiography was performed. Image quality was fair. The study was technically limited due to Smoking history. Complete 2D, spectral Doppler, and color flow Doppler. Location: Bedside. Patient status: Inpatient. Patient room number: ICU 7. Rhythm: Normal sinus rhythm with PVC's. Findings Left ventricle: The cavity size is mildly reduced. Wall thickness is normal. Systolic function is mildly to moderately reduced. The estimated ejection fraction is 40-45%. Regional wall motion abnormalities: Severe hypokinesis of the basal-midinferoseptal myocardium. Akinesis of the basalinferior myocardium. Severe hypokinesis of the midinferior myocardium. Doppler parameters are consistent with abnormal left ventricular relaxation (grade 1 diastolic dysfunction). Right ventricle: The cavity size is normal. Systolic function is mildly reduced. Left atrium: The atrium is normal in size. Right atrium: The atrium is normal in size. Atrial septum: The atrial septum appears aneurysmal. Mitral valve: The leaflets are mildly thickened. There is no evidence of stenosis. There is trace regurgitation. Aortic valve: The valve is trileaflet. The leaflets are mildly thickened. There is no evidence of stenosis. There is trace regurgitation. Tricuspid valve: The valve is structurally normal. There is no evidence of stenosis. There is mild regurgitation. Pulmonic valve: The leaflets are normal thickness. There is no evidence of stenosis. There is trace regurgitation. Aorta: Aortic root: The aortic root is not dilated. Ascending aorta: The ascending aorta is not dilated. Aortic arch: The aortic arch is not dilated. Pericardium: There is no pericardial effusion. Pulmonary arteries: The main pulmonary artery is normal-sized. Systolic pressure is within the normal range, estimated to be 27 mm Hg. Systemic veins: Inferior vena cava: The vessel is normal in size. There is (< 50%) respiratory change in the IVC dimension. Measurements Left ventricle Value Ref Aortic valve continued Value Ref CARLOTA, LAX (L) 3.7 cm 3.8 - 5.2 Margi diam/bsa, ED 1.1 cm/m^2 ----- ESD, LAX 3.3 cm 2.2 - 3.5 Peak v, S 1.23 m/sec ----- FS, LAX (L) 11 % 27 - 45 VTI, S 25.3 cm ----- PW, ED (H) 1.0 cm 0.6 - 0.9 Mean grad, S 4.0 mm Hg ----- IVS/PW, ED 1.06 Peak grad, S 6.0 mm Hg ----- E', lat margi, TDI (L) 6.7 cm/sec >=10.0 LVOT/AV, VTI ratio 0.6 ----- E/e', lat margi, 8 TDI Mitral valve Value Ref E', med margi, TDI (L) 5.4 cm/sec >=7.0 Peak E 0.55 m/sec ----- E/e', med margi, 10 Peak A 0.69 m/sec --- -- TDI Decel time 236 ms ----- E', avg, TDI 6.1 cm/sec Peak E/A ratio 0.8 --- -- E/e', avg, TDI 9 <=14 Pulmonic valve Value Ref LVOT Value Ref Peak v, S 0.58 m/sec ----- Peak leyla, S 0.76 m/sec Peak grad, S 1.0 mm Hg ----- VTI, S 15.1 cm Mean grad, S 1 mm Hg Tricuspid valve Value Ref TR peak v 2.2 m/sec <=2.8 Ventricular septum Value Ref Peak RV-RA grad, S 19 mm Hg ----- IVS, ED (H) 1.0 cm 0.6 - 0.9 Max TR leyla 2.2 m/sec ----- Right ventricle Value Ref Aortic root Value Ref CARLOTA, LAX 3.1 cm Root diam 3.1 cm <4.0 CARLOTA minor ax, A4C 2.9 cm 1.9 - 3.5 mid Ascending aorta Value Ref Pressure, S 27 mm Hg AAo AP diam, S 3.5 cm ----- Left atrium Value Ref Aortic arch Value Ref AP dim, ES (L) 2.50 cm 2.70 - Arch diam 2.7 cm ----- 3.80 ML dim, A4C 3.6 cm Decending aorta Value Ref SI dim, A4C 4.8 cm Vitor peak leyla 0.74 m/sec ----- Vol/bsa, ES, 1-p 23 ml/m^2 11 - 40 A4C Pulmonary artery Value Ref Vol/bsa, ES, A/L 27 ml/m^2 16 - 34 Pressure, S 27.0 mm Hg ----- Right atrium Value Ref Inferior vena cava Value Ref ML dim, ES, A4C 3.7 cm 2.6 - 4.4 Diam 1.9 cm ----- SI dim, ES, A4C 4.7 cm 3.4 - 5.3 Estimated RAP 8 mm Hg Aortic valve Value Ref Margi diam, ED 2.1 cm Legend: (L) and (H) randi values outside specified reference range. Prepared and electronically signed by Yoel Perez MD 04/05/2019 10:02
[2019-04-05 11:21] LABS: Creatine Kinase 1777 U/L (10-223)
[2019-04-05 11:27] LABS: CKMB ng/mL 263.1 ng/mL (0.6-6.3)
[2019-04-05 11:34] LABS: Troponin I > 83.00 ng/mL (<0.04)
--- NOTE | 2019-04-05 11:46 | HP ---
CC: Dr. Unique Cabrera, [facility] ADMISSION HISTORY AND PHYSICAL: DATE OF ADMISSION: 04/04/19 CHIEF COMPLAINT: The patient presented with a myriad of symptoms to the emergency room at [facility] with eventual abnormal EKG demonstrating ST-segment elevation inferior wall myocardial infarction. HISTORY OF PRESENT ILLNESS: The patient is a 44-year-old female who 2 days prior to admission had complained about left ear pain, got a flu shot, and then developed recurrent ear pain. She was diagnosed with an ear infection apparently on 04/03/19. Please refer to the emergency room notes for her presentation. She presented to the emergency room on the day of admission at [facility] at 1557. Eventually, after working her up, the decision was made to obtain an EKG as the patient had an abnormal troponin value and a STEMI alert was called at 6:41 p.m. On my arrival, the patient was still having discomfort in the chest. She states that she has had chest discomfort radiating to the throat, jaw, and both arms. At that point, she had received 5000 units of heparin intravenously, aspirin 324, and 180 mg of Brilinta. I discussed with great urgency the risks and benefits of cardiac catheterization and she agreed to proceed. PAST MEDICAL HISTORY: Was significant for hypertension. She specifically denied any history of diabetes or hyperlipidemia. She does have a significant smoking history. She has no family history of immediate coronary artery disease , but has multiple second-degree relatives with coronary artery disease. REVIEW OF SYSTEMS: Pertinent to proceeding to the cardiac orthodontic laboratory technician, there was a negative history of bleeding problems. Specifically, no hematochezia, hematemesis, or hematuria. No history of CVA or TIA. Known history of contrast allergy. PHYSICAL EXAMINATION VITAL SIGNS: In the emergency room on the chart revealed blood pressure 159/115 , pulse 76 and regular, respirations 22, afebrile. HEENT: Mouth: The patient had moist mucosa. Eyes: The patient had conjunctivae pink. Sclerae clear. NECK: Supple. No increased JVP. Carotid had good upstroke and volume without bruit. CHEST: Lungs were clear to A and P. No active rales, rhonchi, or wheezes. HEART: Had a regular rate and rhythm without significant systolic or diastolic murmur. ABDOMEN: Soft, nontender. EXTREMITIES: Without edema. Peripheral pulses were intact throughout. No femoral bruits were appreciated. NEURO: The patient was alert and oriented with normal mentation. MUSCULOSKELETAL: The patient moved all extremities appropriately. PSYCHOLOGICAL: The patient with normal affect. DIAGNOSTIC STUDIES/LAB DATA: Laboratory results known at the time prior to catheterization: Hemoglobin and hematocrit of 16.5 and 49, white count 15,100, platelet count of 185,000. Sodium 139, potassium 3.4, chloride 106, bicarb 28, BUN and creatinine 10 and 0.75. Troponin at 1646 was 0.06. CK-MB at 191 was 144 and 22.1. BNP was 75. EKG at the time of 1842 revealed normal sinus rhythm, heart rate 67, ST-segment elevation in II; III; aVF; and V5 and V6 with reciprocal changes in V2; I; and aVL. There were small Q waves noted in II, slightly larger in III, small Q in aVF with still R-wave preservation noted. OVERALL ASSESSMENT: The patient presents by EKG now several hours into an acute ST-segment- elevation inferior wall myocardial infarction. She has appropriately received aspirin, heparin, and Brilinta therapy and further management will be made pending the cardiac catheterization. The risks and benefits were explained. She understood them and wished to proceed. Further management pending the cardiac catheterization. [id number] #: [id number] MATT
[2019-04-05] MEDS: Captopril TAB* 12.5 MG PO SCH ×2 (11:56→19:57)
--- NOTE | 2019-04-05 13:24 | CATH ---
CC: Dr. Unique Cabrera, [facility] CARDIAC CATHETERIZATION AND INTERVENTIONAL REPORT: DATE OF PROCEDURE: 04/04/19 INDICATION FOR THIS PROCEDURE: The patient was noted to have ST-segment- elevation inferior wall myocardial infarction, for acute intervention after having presented to the emergency room at [facility]. PROCEDURES: Coronary arteriography, balloon angioplasty and stenting utilizing a 3.0 x 30 mm long Orsiro drug-eluting stent dilated to 3.1 to 3.2 mm. CONSENT: The patient was interviewed and examined in the emergency room, where the risks and benefits were explained. She understood them and wished to proceed. APPROACH UTILIZED: The right radial artery was assessed by ultrasound and found to be acceptable for an approach and as such, this was the approach utilized. EQUIPMENT UTILIZED: 1. Right radial artery sheath - a 6-Turkmen Glidesheath slender. 2. Diagnostic guidewires utilized included a Wholey 145 cm length to negotiate the subclavian area and a 260 length Barba Exchange length wire for all catheter exchanges. 3. Diagnostic coronary arteriography was performed utilizing the TIG4 5-Turkmen curve catheter. 4. The guide catheters utilized were initially a 6-Turkmen AR1 curve guide catheter, an ART4 curve catheter, and an AL1 catheter 6-Turkmen catheter. 5. Interventional wires utilized included a regular length All Star wire, an exchange length All Star wire, an exchange length Whisper wire, and an exchange length extra support wire. 6. Balloon catheters utilized: An Emerge 1.5 x 8 mm long to cross the obstruction and document intraluminal placement. A 2.0 x 15 mm long for primary balloon angioplasty and poststent deployment balloon inflations with a 3.0 x 30 mm long NC Emerge balloon. 7. Stent utilized: A 3.0 x 30 mm long Orsiro sirolimus drug-eluting stent. 8. Closure device utilized was a regular-sized Vasc Band by [employer]. PRECARDIAC CATHETERIZATION LABORATORY RESULTS: Hemoglobin and hematocrit of 16.5 and 49. The white count 15,100, platelet count 185,000. BUN and creatinine of 10 and 0.75, sodium 139, potassium 3.4, chloride 106, bicarb 28. Troponin 0.06. MEDICATIONS GIVEN IN THE CUSTOMER ACCOUNT SPECIALIST: (The patient had already received 5000 units of heparin, 180 mg of Brilinta, 324 mg of aspirin in the emergency room.) 1. Intracoronary nitroglycerin, 2. Radial artery cocktail with 300 mcg of nitroglycerin and 3 mg of verapamil, 3. 1% Xylocaine for local anesthesia, 4. Lopressor 2.5 mg IV. 5. Additional heparin therapy for the interventional procedure, 6. Versed - a total of 2.5 mg IV. DESCRIPTION OF PROCEDURE: The patient was brought to the cardiovascular laboratory, where a formal time-out was performed. She was prepped and draped in sterile fashion, and under ultrasound guidance, the right radial artery was cannulated and a sheath was placed. Coronary arteriography was performed. Following this, the decision was made to intervene into the left coronary artery. Of note, multiple different guide catheters were attempted. Eventually , the 6- Turkmen AL1 curve guide catheter with side holes was utilized. Multiple guidewires were used in an attempt to cross the wire utilizing the 1.5 x 8 mm long Emerge push balloon to give better stability. Eventually, the exchange length ChoICE Extra Support wire was able to cross the lesion, and the balloon catheter was placed distally, and an injection was made to assess for intraluminal positioning. It was found to be intraluminal. This balloon catheter was then exchanged for the 2.0 x 15 mm long Emerge balloon, which was utilized to reestablish blood flow. Following this, stent deployment was performed with poststent deployment high-pressure balloon inflations with the 3.0 x 30 mm long NC Emerge balloon. The artery was then assessed in multiple views. At the end of the case, the catheter and sheath were removed and hemostasis was obtained with the Vasc Band. The reverse Barbeau was a B. The total contrast used was 225 cc of Omnipaque dye. The radiation exposure included 30.9 minutes of fluoro time. The air kerma radiation was 2329 mGy. The DAP radiation was 13,214 microgray per meter squared. Of note, additional heparin was given throughout the case to establish a therapeutic ACT for intervention. RESULTS: CORONARY ARTERIOGRAPHY: A. Left coronary artery: 1. Left main - widely patent with minimal narrowing at its distal portion of 15%. 2. Left anterior descending artery - the left anterior descending artery had mild luminal irregularities noted in its proximal portion with the degree of narrowing noted to be 25% to 30% at most. The mid and distal vessels had no significant narrowings noted; it supplied the distal anterior and apical region. The first diagonal branch had an ostial narrowing that appeared to be 35%. 3. Circumflex artery - a nondominant vessel supplying a high first obtuse marginal branch followed by a small thread-like second obtuse marginal branch and small- sized third and fourth obtuse marginal branch ending in a low- lying moderate-sized obtuse marginal branch. There was moderate disease seen throughout the mid segment of the circumflex artery with the degree of narrowing noted to be approximately 40% to 45%. The high first obtuse marginal branch had proximal narrowing of 55% to 60%. B. Right coronary artery: The proximal portion of the right coronary artery had a 35% to 40% obstruction seen. It was totally occluded in its mid segment. After balloon angioplasty of this area, there was a significant stenosis noted in its mid segment. Of note, there was wire-induced pseudolesion in its proximal portion in the area of the prior 35% to 40% narrowing, which reverted back on removal of wire at the end of the case and intracoronary nitroglycerin back to a 35% to 40% narrowing. INTERVENTION INTO TOTALLY OCCLUDED MID PORTION OF RIGHT CORONARY ARTERY: Successful recanalization of 100% occluded mid right coronary artery with balloon angioplasty and stenting utilizing the 3.0 x 30 mm long Orsiro drug- eluting stent post dilated to 3.1 to 3.2 mm with MEGAN-3 flow, no dissection seen. Residual narrowing noted within the segment of 10%. OVERALL ASSESSMENT: Successful intervention into totally occluded mid right coronary artery with balloon angioplasty and stent placement. Dual antiplatelet therapy for a minimum of 1 year's time should be considered. The patient will get an echocardiogram in the morning to look at overall LV function. Clearly, the patient needs to stop smoking given that is a strong risk factor for restenosis and further progression of coronary artery disease. She has the history of hypertension as well that will need to be addressed. She will be on high-dose statin therapy as well. Beta sidra and possible ACEI therapy will be pursued as well. [id number]/[facility] #: [id number] [facility] SYSTEMKellee
[2019-04-05] MEDS: Atorvastatin* 80 MG TAB PO SCH (16:35)
[2019-04-06 03:55] LABS: BUN/Creatinine Ratio 16.7 (8-20); EGFR African American 106.5 (>60); Potassium 4.2 mmol/L (3.5-5.0)
[2019-04-06] MEDS: Aspirin 81 mg CHEW TAB* 81 MG TAB.CHEW PO SCH (09:03)
[2019-04-06] MEDS: Ticagrelor* 90 MG TAB PO SCH ×2 (09:06→20:07)
[2019-04-06] MEDS: Metoprolol Succinate XL TAB* 25 MG PO SCH ×2 (09:06→20:07)
[2019-04-06] MEDS: Captopril TAB* 12.5 MG PO SCH ×4 (09:06→20:07)
[2019-04-06 15:26] LABS: CRP High Sensitivity 2.19 mg/L (<2.00)
[2019-04-06] MEDS: buPROPion SR TAB.SR* 150 MG PO SCH (15:29)
[2019-04-06] MEDS: Atorvastatin* 80 MG TAB PO SCH (18:15)
[2019-04-07] MEDS: Aspirin 81 mg CHEW TAB* 81 MG TAB.CHEW PO SCH (08:52)
[2019-04-07] MEDS: Ticagrelor* 90 MG TAB PO SCH (08:53)
[2019-04-07] MEDS: buPROPion SR TAB.SR* 150 MG PO SCH (08:53)
[2019-04-07] MEDS ORDERED: Metoprolol Succinate XL TAB* 50 MG PO SCH (09:00)
[2019-04-07] MEDS ORDERED: Lisinopril TAB* 10 MG PO SCH (09:00)
--- NOTE | 2019-04-07 10:42 | PN ---
<Dali Rosraio - Last Filed: 04/07/19 10:31> Subjective Date of Service: 04/07/19 - inferior STEMI s/p PTCA/CORNELIO mid RCA Interval History: No events last night. 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 No c/o jaw pain, chest pain, sob, dizziness or palpitations. She is anxious to go home. She states she has been ambulating the halls with no difficulty and offers no complaints at this time. Medications Active Medications: Acetaminophen (Tylenol Tab*) 650 mg PO Q4H PRN PRN Reason: PAIN - MILD Aspirin (Aspirin 81 Mg Chew Tab*) 81 mg PO DAILY [facility] Last Admin: 04/07/19 08:52 Dose: 81 mg Atorvastatin Calcium (Lipitor*) 80 mg PO 1700 [facility] Last Admin: 04/06/19 18:15 Dose: 80 mg Bupropion HCl (Wellbutrin Sr Tab*) 150 mg PO DAILY [facility] Last Admin: 04/07/19 08:53 Dose: 150 mg Docusate Sodium (Colace Cap*) 100 mg PO DAILY PRN PRN Reason: CONSTIPATION Losartan Potassium (Cozaar Tab*) 25 mg PO DAILY [facility] Metoprolol Succinate (Toprol Xl Tab*) 50 mg PO DAILY [facility] Last Admin: 04/07/19 08:52 Dose: 50 mg Nitroglycerin (Nitroglycerin Tab 0.4 Mg*) 0.4 mg SL Q5M PRN PRN Reason: ANGINA Ticagrelor (Brilinta*) 90 mg PO BID [facility] Last Admin: 04/07/19 08:53 Dose: 90 mg Zolpidem Tartrate (Ambien Tab*) 5 mg PO BEDTIME PRN PRN Reason: INSOMNIA Objective Vital Signs: Temp Pulse Resp BP Pulse Ox 97.6 F 62 18 122/90 98 04/07/19 08:00 04/07/19 08:50 04/07/19 08:50 04/07/19 08:50 04/07/19 08:00 Oxygen Devices in Use Now: None Appearance: sitting upright in bed, NAD, A+O x3, NAD Ears/Nose/Mouth/Throat: NL Teeth, Lips, Gums, Clear Oropharnyx, Mucous Membranes Moist Neck: NL Appearance and Movements; NL JVP, Trachea Midline Respiratory: Symmetrical Chest Expansion and Respiratory Effort, Clear to Auscultation Cardiovascular: NL Sounds; No Murmurs; No JVD, RRR, No Edema, - - right radial acces site is intact, no evidence of hematoma. strong radial pulse palpated. no thrill. Extremities: No Edema Skin: No Rash or Ulcers Neurological: Alert and Oriented x 3 Lines/Tubes/Other Access: Clean, Dry and Intact Peripheral IV Laboratory Results: 04/05/19 05:33 04/06/19 03:31 INR (Anticoag Therapy) 1.22 (0.82-1.09) H 04/04/19 19:12 APTT < 240.0 seconds (26.0-38.0) H* 04/04/19 19:12 Total Bilirubin 0.40 mg/dL (0.2-1.0) 04/05/19 05:33 AST 204 U/L (13-39) H 04/05/19 05:33 ALT 33 U/L (7-52) 04/05/19 05:33 Alkaline Phosphatase 55 U/L (34-104) 04/05/19 05:33 CK-MB (CK-2) 263.1 ng/mL (0.6-6.3) H 04/05/19 10:55 B-Natriuretic Peptide 75 pg/mL (<=100) 04/04/19 19:12 Total Protein 6.0 g/dL (6.4-8.9) L 04/05/19 05:33 Albumin 3.9 g/dL (3.2-5.2) 04/05/19 05:33 Globulin 2.1 g/dL (2-4) 04/05/19 05:33 Albumin/Globulin Ratio 1.9 (1-3) 04/05/19 05:33 Triglycerides 141 mg/dL 04/05/19 05:33 Cholesterol 177 mg/dL 04/05/19 05:33 LDL Cholesterol 108 mg/dL 04/05/19 05:33 HDL Cholesterol 41.3 mg/dL 04/05/19 05:33 04/04/19 04/04/19 04/05/19 16:46 22:56 05:33 Troponin I 0.06 H* 39.54 H* > 83.00 H* 04/05/19 10:55 Troponin I > 83.00 H* Laboratory Results - last 24 hr 04/04/19 04/04/19 04/04/19 16:46 16:46 16:46 Sodium 139 Potassium 3.4 L Chloride 106 Carbon Dioxide 28 Anion Gap 5 BUN 10 Creatinine 0.75 Est GFR ( Amer) 101.6 Est GFR (Non-Af Amer) 83.9 BUN/Creatinine Ratio 13.3 Glucose 167 H Hemoglobin A1c 5.4 Calcium 9.8 Total Bilirubin 0.50 AST 13 ALT 12 Alkaline Phosphatase 62 Troponin I 0.06 H* C-Reactive Protein 2.65 C-React Prot High Sens 2.19 H Total Protein 7.3 Albumin 4.6 Globulin 2.7 Albumin/Globulin Ratio 1.7 Lyme Total Antibody Negative 04/06/19 03:31 Sodium 140 Potassium 4.2 Chloride 112 H Carbon Dioxide 24 Anion Gap 4 BUN 12 Creatinine 0.72 Est GFR ( Amer) 106.5 Est GFR (Non-Af Amer) 88.0 BUN/Creatinine Ratio 16.7 Glucose 101 H Hemoglobin A1c Calcium 9.0 Total Bilirubin AST ALT Alkaline Phosphatase Troponin I C-Reactive Protein C-React Prot High Sens Cancelled Total Protein Albumin Globulin Albumin/Globulin Ratio Lyme Total Antibody Diagnostic Imaging: Cardiac Catheterization Report Patient: AFSANEH HAMMER /Age: 09 1975 44 Medical Record#: [id number] Admission Date: 04/04/19 Provider: Preet Boyle MD CC: Dr. Unique Cabrera, [facility] CARDIAC CATHETERIZATION AND INTERVENTIONAL REPORT: DATE OF PROCEDURE: 04/04/19 INDICATION FOR THIS PROCEDURE: The patient was noted to have ST-segment- elevation inferior wall myocardial infarction, for acute intervention after having presented to the emergency room at [facility]. PROCEDURES: Coronary arteriography, balloon angioplasty and stenting utilizing a 3.0 x 30 mm long Orsiro drug- eluting stent dilated to 3.1 to 3.2 mm. CONSENT: The patient was interviewed and examined in the emergency room, where the risks and benefits were explained. She understood them and wished to proceed. APPROACH UTILIZED: The right radial artery was assessed by ultrasound and found to be acceptable for an approach and as such, this was the approach utilized. EQUIPMENT UTILIZED: 1. Right radial artery sheath - a 6-Bulgarian Glidesheath slender. 2. Diagnostic guidewires utilized included a Wholey 145 cm length to negotiate the subclavian area and a 260 length Barba Exchange length wire for all catheter exchanges. 3. Diagnostic coronary arteriography was performed utilizing the TIG4 5-Bulgarian curve catheter. 4. The guide catheters utilized were initially a 6-Bulgarian AR1 curve guide catheter, an ART4 curve catheter, and an AL1 catheter 6-Bulgarian catheter. 5. Interventional wires utilized included a regular length All Star wire, an exchange length All Star wire, an exchange length Whisper wire, and an exchange length extra support wire. 6. Balloon catheters utilized: An Emerge 1.5 x 8 mm long to cross the obstruction and document intraluminal placement. A 2.0 x 15 mm long for primary balloon angioplasty and poststent deployment balloon inflations with a 3.0 x 30 mm long NC Emerge balloon. 7. Stent utilized: A 3.0 x 30 mm long Orsiro sirolimus drug-eluting stent. 8. Closure device utilized was a regular-sized Vasc Band by [employer]. PRECARDIAC CATHETERIZATION LABORATORY RESULTS: Hemoglobin and hematocrit of 16.5 and 49. The white count 15,100, platelet count 185,000. BUN and creatinine of 10 and 0.75, sodium 139, potassium 3.4, chloride 106, bicarb 28. Troponin 0.06. 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 Absence of a signature indicates the report is in a draft status and still needs to be finalized. In the event this document was created by someone other than the signing Provider, the individual initiating the document will be listed in the "Entered by:" or "Dictated by:" rosales. 1 of 3 *[facility]* [place] [address] Fax #: [phone] Transthoracic Echocardiogram Patient: Afsaneh Hammer : 1975 Study Date: 04/05/2019 Age: 44 Gender: F HR: 74 bpm Height: 65 in /165.1 cm BSA: 1.82 m^2 Weight: 164.7 lb /74.8 kg BMI: 27.5 kg/m^2 *Skip Hoist Engineer: * Radha Galarza RDCS RN *Referring Physician: * Preet Boyle MD *Reading Physician: * Yoel Perez MD Indications: Myocardial Infarction (new). History: S/P PCI for inferior wall STEMI on 04/04/2019. Risk factors: Current tobacco use. Hypertension. Conclusions Summary: - Left ventricle: The cavity size is mildly reduced. Wall thickness is normal. Systolic function is mildly to moderately reduced. The estimated ejection fraction is 40-45%. Severe hypokinesis of the basal-midinferoseptal myocardium. Akinesis of the basalinferior myocardium. Severe hypokinesis of the midinferior myocardium. - Right ventricle: Systolic function is mildly reduced. - Mitral valve: There is trace regurgitation. - Tricuspid valve: There is mild regurgitation. - No previous echocardiogram available. Study data: Transthoracic echocardiogram. Procedure: Transthoracic echocardiography was performed. Image quality was fair. The study was technically limited due to Smoking history. Complete 2D, spectral Doppler, and color flow Doppler. Location: Bedside. Patient status: Inpatient. Patient room number: ICU 7. This report is only to be considered final once signed by the Provider(s) as displayed in the "<Electronically Signed by >" field (s). Absence of a signature indicates the report is in a draft status and still needs to be finalized. In the event this document was created by someone other than the signing Provider, the individual initiating the document will be listed in the "Entered by:" or "Dictated by:" rosales. EKG Data: ECG 04/07/2019; sinus bradycardia rate 55 with diffuse TW depression most noticeably in inferior leads consist with recent VT. +inferior Q waves telemetry reviewed; Sinus bradycardia rate 50's. occassional PVC with rare couplet. Last episode of NSVT was on 04/05/2019 at 0200. Patient was not asleep. At that time she had a 24 beat count of accelerate wide complex rhythm ventricular rate 120 BPM. Assessment/Plan #1 Late presenting inferior STEMI s/p PTCA/CORNELIO mid RCA 04/05/2019. No recurrent c /o jaw pain. Troponin peaked > 83. LVEF 40-45% on 04/05/2019 echo. She is on ASA 81/day in combination with Brilinta 90mg PO BID which she will need uninterrupted for 12 months time given presentation was STEMI. She is to continue Toprol and Lipitor therapy. Right radial access site is intact, no evidence of hematoma. Free 30 day supply for Brilinta was sent to [facility] outpatient pharmacy which is to be given to patient prior to leaving the hospital. She is to follow up next week with Dr. Boyle. #2 ICM; LVEF 40-45%; Compensated on exam. On Toprol therapy. She reports sensitivity to Lisinopril ( dry cough) thus, she was transitioned to Losartan therapy. #3 Accelerated wide complex ventricular rhythm 04/05/2019 at 0249; occurred while awake per patient. No reoccurrence. Since then she underwent intervention to RCA. On bblocker therapy. will monitor patient for the remainder of the day and if no reoccurrence she is to go home. #4 h/o Tobacco abuse; Patient states she is going to stop smoking. I reviewed at length the importance of smoking cessation for her overall cardiovascular care. Attending: Yue Garcia <Yue Garcia - Last Filed: 04/07/19 17:50> Medications Active Medications: Acetaminophen (Tylenol Tab*) 650 mg PO Q4H PRN PRN Reason: PAIN - MILD Aspirin (Aspirin 81 Mg Chew Tab*) 81 mg PO DAILY [facility] Last Admin: 04/07/19 08:52 Dose: 81 mg Atorvastatin Calcium (Lipitor*) 80 mg PO 1700 [facility] Last Admin: 04/07/19 17:33 Dose: 80 mg Bupropion HCl (Wellbutrin Sr Tab*) 150 mg PO DAILY [facility] Last Admin: 04/07/19 08:53 Dose: 150 mg Docusate Sodium (Colace Cap*) 100 mg PO DAILY PRN PRN Reason: CONSTIPATION Losartan Potassium (Cozaar Tab*) 25 mg PO DAILY [facility] Last Admin: 04/07/19 11:28 Dose: 25 mg Metoprolol Succinate (Toprol Xl Tab*) 50 mg PO DAILY [facility] Last Admin: 04/07/19 08:52 Dose: 50 mg Nitroglycerin (Nitroglycerin Tab 0.4 Mg*) 0.4 mg SL Q5M PRN PRN Reason: ANGINA Ticagrelor (Brilinta*) 90 mg PO BID [facility] Last Admin: 04/07/19 08:53 Dose: 90 mg Zolpidem Tartrate (Ambien Tab*) 5 mg PO BEDTIME PRN PRN Reason: INSOMNIA Objective Vital Signs: Temp Pulse Resp BP Pulse Ox 97.3 F 57 17 103/73 99 04/07/19 15:29 04/07/19 15:29 04/07/19 15:29 04/07/19 15:29 04/07/19 15:29 Laboratory Results: 04/05/19 05:33 04/06/19 03:31 INR (Anticoag Therapy) 1.22 (0.82-1.09) H 04/04/19 19:12 APTT < 240.0 seconds (26.0-38.0) H* 04/04/19 19:12 Total Bilirubin 0.40 mg/dL (0.2-1.0) 04/05/19 05:33 AST 204 U/L (13-39) H 04/05/19 05:33 ALT 33 U/L (7-52) 04/05/19 05:33 Alkaline Phosphatase 55 U/L (34-104) 04/05/19 05:33 CK-MB (CK-2) 263.1 ng/mL (0.6-6.3) H 04/05/19 10:55 B-Natriuretic Peptide 75 pg/mL (<=100) 04/04/19 19:12 Total Protein 6.0 g/dL (6.4-8.9) L 04/05/19 05:33 Albumin 3.9 g/dL (3.2-5.2) 04/05/19 05:33 Globulin 2.1 g/dL (2-4) 04/05/19 05:33 Albumin/Globulin Ratio 1.9 (1-3) 04/05/19 05:33 Triglycerides 141 mg/dL 04/05/19 05:33 Cholesterol 177 mg/dL 04/05/19 05:33 LDL Cholesterol 108 mg/dL 04/05/19 05:33 HDL Cholesterol 41.3 mg/dL 04/05/19 05:33 04/04/19 04/04/19 04/05/19 16:46 22:56 05:33 Troponin I 0.06 H* 39.54 H* > 83.00 H* 04/05/19 04/07/19 10:55 10:37 Troponin I > 83.00 H* 16.41 H*
[2019-04-07] MEDS ORDERED: Losartan TAB* 25 MG PO SCH (11:00)
[2019-04-07 11:11] LABS: Troponin I 16.41 ng/mL (<0.04)
--- NOTE | 2019-04-07 14:10 | DS ---
ADDENDUM NOW INCLUDED ON THIS REPORT CC: Dr. Unique Cabrera * DISCHARGE SUMMARY: DATE OF ADMISSION: 04/04/19 TENTATIVE DATE OF DISCHARGE: 04/07/19, pending no complications. PRIMARY PHYSICIAN: Dr. Unique Cabrera. ATTENDING PHYSICIAN: Yue Garcia MD * (dictated by Dali Rosario NP). ADMITTING DIAGNOSES: 1. Inferior ST-elevation myocardial infarction presenting with complaints of left ear pain with chest discomfort. 2. History of hypertension. 3. History of ongoing tobacco abuse. DISCHARGE DIAGNOSES: 1. Inferior ST-elevation myocardial infarction, status post percutaneous transluminal coronary angioplasty, drug-eluting stent to mid right coronary artery. Troponin peaked greater than 83, LVEF 40% to 45%, on aspirin 81 mg a day , Brilinta 90 mg a day, Lipitor 80 mg p.o. q.h.s., metoprolol 50 mg a day. No recurrent complaints of chest pain since intervention. 2. History of hypertension, currently normotensive, on losartan 25 in combination with metoprolol 50 mg a day. 3. Newly diagnosed ischemic cardiomyopathy, LVEF 40% to 45%, compensated on physical examination, on metoprolol 50 mg a day in combination of losartan 25 mg a day, status post PCI to mid RCA. 4. Hyperlipidemia, on atorvastatin 80 mg p.o. q.h.s. We will need repeat liver function tests and lipid panel in 6 to 8 weeks' time. 5. Accelerated wide complex ventricular arrhythmia at 02:49 on 04/05/19. The patient was awake during episode. No recurrence since then, on beta blockade therapy. PROCEDURES PERFORMED: The patient underwent left heart catheterization with Dr. Preet Boyle on 04/05/19. Per report, the patient had a 6-Kiswahili right radial access catheter. She underwent successful PTCA, CORNELIO with 3.0 x 30 mm drug-eluting stent to mid RCA. 1. Per report, left main widely patent with minimal narrowing at its distal portion of 15%. 2. LAD: The left anterior descending artery had mild luminal irregularities noted in its proximal portion with a degree of narrowing noted to be 25% to 30% at most. First diagonal branch had an ostial narrowing that appeared to be 35%. 3. Left circumflex: Nondominant vessel supplying a high first obtuse marginal branch followed by a small thread-like second obtuse marginal branch and small size third to fourth obtuse marginal branch. There was moderate disease seen throughout the mid segment of the left circumflex and the degree of narrowing to be 40% to 45%. High first obtuse marginal branch had proximal narrowing 55% to 60% stenosis. 4. Right coronary artery: The proximal portion of the RCA had 35% to 40% obstruction seen. Total occlusion in its mid segment. Of note, there was a wire- induced pseudolesion in its proximal portion in the area of the prior 35% narrowing, which reverted back on removal of wire at the end of the case and intracoronary nitroglycerin back to 35% to 40% narrowing. COMPLICATIONS: None thus far. COURSE OF HOSPITAL STAY: This is a pleasant 44-year-old female patient with a notable history of hypertension, ongoing tobacco abuse, who presented to [facility] on 04/04/19 with complaints of left ear pain and chest discomfort. STEMI alert was called. The patient was given 324 mg of aspirin, 180 mg of Brilinta, and IV heparin therapy. She was seen in the emergency department by Dr. Preet Boyle. 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 Postprocedure, isoenzymes were cycled, troponin peaked greater than 83. Echocardiogram was updated on . Per report, LVEF 40% to 45%. There was severe hypokinesis of the basal/ mid inferoseptal myocardium, akinesis of the basal inferior myocardium, severe hypokinesis of the mid inferior myocardium. Trace mitral insufficiency, mild tricuspid insufficiency. There was trace aortic insufficiency. There was no dilatation involving the ascending aorta. The evening of 04/05/19 at 02:49, the patient had a 24-beat count of accelerated wide complex ventricular arrhythmia. Apparently, she was awake during episode because the patient beside her in the room was combative with the nursing staff. She has had no recurrence of nonsustained VT since then. She has had rare episodes of ventricular couplets and triplets. She offers no complaints at this time. She has been ambulating with no difficulty. Denies any recurrent complaints of left ear pain or chest pain, dizziness, palpitations, or sensation of heart racing. Most recent chemistry was 04/06/19, at that time, sodium was 140, potassium 4.2, chloride 112, carbon dioxide 24, BUN 12, creatinine 0.72. Hemoglobin A1c was updated during this hospital stay and was 5.4%. She had mild transaminitis. Again, troponin peaked greater than 83. LDL was 108 during the hospital stay. She was started on aspirin, statin, beta-sidra, ARB, and Brilinta therapy and has been tolerating medication regimen. Most recent set of vital signs; heart rate was 62, respirations 18, blood pressure 122/90. Pending no complications. The patient is to go home later today if there is no evidence of recurrent ventricular arrhythmias. Her right radial access was inspected. There is no evidence of hematoma. She has strong radial and ulnar pulses palpated with no thrill. FOLLOWUP APPOINTMENT: The patient is to follow up with Dr. 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 She is to follow up with PCP, Dr. Unique Caberra, in 7 to 10 days. She is in stable condition. DISCHARGE MEDICATIONS: Include: 1. Aspirin 81 mg p.o. daily. 2. Lipitor 80 mg p.o. q.h.s. 3. Losartan 25 mg a day. 4. Metoprolol 50 mg a day. 5. Sublingual nitroglycerin 0.4 mg sublingual tablet q.5 minutes up to 3 doses p.r.n. 6. Brilinta 90 mg p.o. b.i.d. OUTPATIENT BLOOD WORK: The patient will need to repeat fasting lipid panel and liver function tests in 6 to 8 weeks' time. RESTRICTIONS: The patient is to not go back to work until release, which we will address on 04/14/19 in followup. No driving until further directed at her followup appointment on 04/14/19. She was instructed to not lift anything more than 5 to 10 pounds until further directed. I reviewed the importance of medication compliance, specifically aspirin and Brilinta therapy. She is aware that she will need uninterrupted dual- antiplatelet therapy for a minimum of 12 months given her presentation with STEMI. She is aware to avoid higher doses of aspirin in combination with Brilinta and that we only recommend 81 mg of aspirin daily. She is also aware that in the future should she require [id number] medications she is to ask her pharmacist if any of the [id number] medications contain additional aspirin. Dr. Yue Garcia has personally seen and examined the patient and agrees with the above assessment and plan. We will continue to monitor on telemetry. If no recurrent ventricular arrhythmias, she is to go home later today in stable condition. DALI ROSARIO NP ADDENDUM: ATTENDING PHYSICIAN: Dr. Yue Garcia, Interventional Cardiology. The patient was in stable condition upon discharge. She was discharged home. DALI ROSARIO NP [id number]/CPS #: [id number] [id number]/CPS #: [id number] MATT
[2019-04-07 15:30] VITALS: BP 103/73
[2019-04-07] MEDS: Atorvastatin* 80 MG TAB PO SCH (17:33)
[2019-04-07 21:18] LABS: Anaplasma phagocytophilum Negative (Negative); B. miyamotoi PCR, B Negative (Negative); Babesia divergens/MO-1 Negative (Negative); Babesia ducani Negative (Negative); Ehrlichia chaffeensis Negative (Negative); Ehrlichia ewingii/canis Negative (Negative); Ehrlichia muris eauclairensis Negative (Negative)
--- NOTE | 2019-04-14 20:57 | DS ---
DISCHARGE SUMMARY: ADDENDUM: ATTENDING PHYSICIAN: Dr. Yue Garcia, Interventional Cardiology. The patient was in stable condition upon discharge. She was discharged home. MAI MAK, DASHAWN [id number]/[facility] #: [id number] MTAT
== END 2019-04-07 18:37 | disposition home or self-care (01) | DRG 174 ==
LOC: ED 15:56 → ICU 20:58 → MEDTELE 04-06 21:50
PROVIDERS: ADMIT Internal Medicine Cardiovascular Disease; ATTEND Internal Medicine Cardiovascular Disease
PROC: B2111ZZ Fluoroscopy of Multiple Coronary Arteries using Low Osmolar Contrast (ICD-10-PCS; 2019-04-04)
PROC: 027034Z Dilation of Coronary Artery, One Artery with Drug-eluting Intraluminal Device, Percutaneous Approach (ICD-10-PCS; principal; 2019-04-04 19:15)
DX: I21.19 ST elevation (STEMI) myocardial infarction involving other coronary artery of inferior wall (principal); I47.2 Ventricular tachycardia; I10 Essential (primary) hypertension; I25.5 Ischemic cardiomyopathy; E78.5 Hyperlipidemia, unspecified; I25.10 Atherosclerotic heart disease of native coronary artery without angina pectoris; F17.200 Nicotine dependence, unspecified, uncomplicated; F41.9 Anxiety disorder, unspecified; I08.3 Combined rheumatic disorders of mitral, aortic and tricuspid valves; Z79.82 Long term (current) use of aspirin; Z79.02 Long term (current) use of antithrombotics/antiplatelets; Z83.3 Family history of diabetes mellitus
CPT/HCPCS: 36415; 71045; 80048; 80053; 80061; 82550; 82553; 83036; 83605; 83721; 83735; 83880; 84484; 85025; 85347; 85610; 85730; 86140; 86141; 86618; 87641; 87651; 87798; 93005; 93306; 96372; 99285; A9270-GY; C1725; C1769; C1874; C1887; C9606-RC; J0461; J1265; J1644; J1885; J2250; J3010; J3475; J3480; J3490